=== PATIENT | male | born 1965 | race Caucasian/White ===

== ENCOUNTER 2018-03-12 06:21 | Outpatient (CLI) | payer BC ==
[~2018-03-12] VITALS: Ht 185.4 cm; Wt 110.7 kg
[2018-03-12] MEDS ORDERED: PRAV80TA2 PO (11:21)
[2018-03-12] MEDS ORDERED: MONT10TA24 PO (11:21)
[2018-03-12] MEDS ORDERED: CETI10TA17 PO (11:21)
== END 2018-03-12 11:26 | disposition home or self-care (01) ==
LOC: PREOP 06:21
PROVIDERS: ATTEND Surgery
DX: Z01.818 Encounter for other preprocedural examination (principal)

== ENCOUNTER 2018-03-19 08:55 | Day surgery (SDC) | payer BC ==
[~2018-03-19] VITALS: Ht 185.4 cm; Wt 110.7 kg
[~2018-03-19 08:55] MED LIST: CETI10TA17 PO; MONT10TA24 PO; PRAV80TA2 PO
--- OUTSIDE RECORDS SUMMARY | 2018-03-19 08:59 | XMS REPORT ---
Author Author Nery Petersen [facility] Address [address] [place] [address] Care Team Providers Care Drafter Topographical Name Role Phone Nery Petersen Unavailable PROBLEMS Unknown Problems ALLERGIES No Information SOCIAL HISTORY Never Assessed PLAN OF CARE VITAL SIGNS MEDICATIONS Medication Instructions Dosage Frequency Start Date End Date Duration Status Amoxicillin 500 MG Orally every 12 hrs 1 capsule 12h 10 days Active RESULTS No Results PROCEDURES No Known procedures IMMUNIZATIONS No Known Immunizations MEDICAL (GENERAL) HISTORY Type Description Date Medical History Seasonal allergies Medical History Hyperlipidemia Medical History Hx of heart palpitations years ago - wore a holter monitor and no problems were found Surgical History Rotator Cuff surgery - Dr. Sandi Fong 1988
--- OUTSIDE RECORDS SUMMARY | 2018-03-19 09:00 | XMS REPORT ---
Author Author Nery Petersen [facility] Address [address] [place] [address] Care Team Providers Care Hand Meat Salter Name Role Phone Nery Petersen Unavailable PROBLEMS Unknown Problems ALLERGIES No Information SOCIAL HISTORY Never Assessed PLAN OF CARE VITAL SIGNS MEDICATIONS Unknown Medications RESULTS No Results PROCEDURES No Known procedures IMMUNIZATIONS No Known Immunizations MEDICAL (GENERAL) HISTORY Type Description Date Medical History Seasonal allergies Medical History Hyperlipidemia Medical History Hx of heart palpitations years ago - wore a holter monitor and no problems were found Surgical History Rotator Cuff surgery - Dr. Sandi Fong 1988
--- OUTSIDE RECORDS SUMMARY | 2018-03-19 09:00 | XMS REPORT ---
Author Author Nery Petersen [facility] Address [address] [place] [address] Care Team Providers Care Header Dock Name Role Phone Nery Petersen Unavailable PROBLEMS Unknown Problems ALLERGIES No Information SOCIAL HISTORY Never Assessed PLAN OF CARE VITAL SIGNS MEDICATIONS Medication Instructions Dosage Frequency Start Date End Date Duration Status PredniSONE 20 MG Orally Once a day 3 tablets x 2 days, 2 tablets x 2 days, 1 tablet x 2 days (take with food or milk) 24h 6 days Active RESULTS No Results PROCEDURES No Known procedures IMMUNIZATIONS No Known Immunizations MEDICAL (GENERAL) HISTORY Type Description Date Medical History Seasonal allergies Medical History Hyperlipidemia Medical History Hx of heart palpitations years ago - wore a holter monitor and no problems were found Surgical History Rotator Cuff surgery - Dr. Sandi Fong 1988
--- OUTSIDE RECORDS SUMMARY | 2018-03-19 09:00 | XMS REPORT ---
Author Author Valentine Haynes [facility] Address [address] [place] [address] Care Team Providers Care Message And Delivery Service Pricer Name Role Phone Haynes, Valentine Unavailable PROBLEMS Unknown Problems ALLERGIES No Known Allergies ENCOUNTERS Encounter Location Date Diagnosis [facility] [address] [place] [id number] Jul, Bronchitis J40 and Cough R05 [facility] [address] [place] [id number] Apr, Bronchitis J40 [facility] [address] [place] [id number] Apr, [facility] [address] [place] [id number] Apr, [facility] [address] [place] [id number] Apr, [facility] [address] [place] [id number] Mar, Pharyngitis, unspecified etiology J02.9 ; Fever, unspecified fever cause R50.9 and Immunization not carried out because of patient refusal Z28.21 IMMUNIZATIONS No Known Immunizations SOCIAL HISTORY Never Assessed REASON FOR VISIT swollen glands; cough; sore throat PLAN OF CARE Activity Details Follow Up prn Reason: Pending Test Chest X-Ray: PA and Lateral VITAL SIGNS Temperature 97.3 degrees Fahrenheit 2017-08-08 Heart Rate 81 /min 2017-08-08 Height 6 ft 1 in in 2017-08-08 Weight 236 lbs 2017-08-08 BMI 31.13 kg/m2 2017-08-08 Oximetry 98 % 2017-08-08 Blood pressure systolic 128 mm Hg 2017-08-08 Blood pressure diastolic 86 mm Hg 2017-08-08 MEDICATIONS Medication Instructions Dosage Frequency Start Date End Date Duration Status Naproxen 500 MG Orally Twice a day 1 tablet 12h Active Flonase 50 MCG/ACT Nasally Once a day 1 spray in each nostril 24h Active ZyrTEC Active Augmentin 875-125 MG Orally every 12 hrs 1 tablet 12h Jul,Jul 10 day(s) Active Pravastatin Sodium 80 MG Orally Once a day 1 tablet 24h Active Singulair 10 MG Orally Once a day 1 tablet in the evening 24h Active Zithromax Z-Marvin 250 MG Orally Once a day 2 tablets on the first day, then 1 tablet daily for 4 days 24h 5 day(s) Active RESULTS No Results PROCEDURES Procedure Date Ordered Result Body Site X-RAY EXAM CHEST 2 VIEWS August 08, 2017 INSTRUCTIONS MEDICATIONS ADMINISTERED No Known Medications MEDICAL (GENERAL) HISTORY Type Description Date Medical History Seasonal allergies Medical History Hyperlipidemia Medical History Hx of heart palpitations years ago - wore a holter monitor and no problems were found Surgical History Rotator Cuff surgery - Dr. Sandi Fong 1989
--- OUTSIDE RECORDS SUMMARY | 2018-03-19 09:00 | XMS REPORT ---
Author Author Dada Dunn [facility] Address [address] [place] [address] Care Team Providers Care Activities Aide Name Role Phone Dada Dunn Unavailable PROBLEMS Unknown Problems ALLERGIES No Known Allergies SOCIAL HISTORY Never Assessed PLAN OF CARE Activity Details Follow Up prn Reason: VITAL SIGNS Temperature 98.0 degrees Fahrenheit 2017-05-13 Heart Rate 63 /min 2017-05-13 Height 6 ft 1 in in 2017-05-13 Weight 239.0 lbs 2017-05-13 BMI 31.53 kg/m2 2017-05-13 Oximetry 98 % 2017-05-13 Blood pressure systolic 132 mm Hg 2017-05-13 Blood pressure diastolic 80 mm Hg 2017-05-13 MEDICATIONS Medication Instructions Dosage Frequency Start Date End Date Duration Status Naproxen 500 MG Orally Twice a day 1 tablet 12h Active Singulair 10 MG Orally Once a day 1 tablet in the evening 24h Active Flonase 50 MCG/ACT Nasally Once a day 1 spray in each nostril 24h Active Pravastatin Sodium 80 MG Orally Once a day 1 tablet 24h Active ZyrTEC Active Zithromax Z-Marvin 250 MG Orally Once a day 2 tablets on the first day, then 1 tablet daily for 4 days 24h 5 day(s) Active RESULTS No Results PROCEDURES No Known procedures IMMUNIZATIONS No Known Immunizations MEDICAL (GENERAL) HISTORY Type Description Date Medical History Seasonal allergies Medical History Hyperlipidemia Medical History Hx of heart palpitations years ago - wore a holter monitor and no problems were found Surgical History Rotator Cuff surgery - Dr. Sandi Fong 1988
[2018-03-19] MEDS ORDERED: NS IV 500 ML 500 ML ONE (09:06)
[2018-03-19] MEDS ORDERED: NS IV 500 ML 500 ML IV PRN (09:25)
[2018-03-19 09:28] VITALS: BP 118/84
[2018-03-19] MEDS ORDERED: LIDOCAINE JELLY 2% 6 ML SYRINGE MM PRN (09:30)
[2018-03-19] MEDS ORDERED: MIDAZOLAM 2 MG/2 ML (VERSED) VIAL IVP ONE (09:30)
[2018-03-19] MEDS ORDERED: fentaNYL INJECTION 100 MCG/2 ML AMP IVP ONE (09:30)
[2018-03-19] MEDS ORDERED: MIDAZOLAM 2 MG/2 ML (VERSED) VIAL ONE ×4 (10:23→10:44)
[2018-03-19] MEDS ORDERED: fentaNYL INJECTION 100 MCG/2 ML AMP ONE (10:23)
[2018-03-19] MEDS ORDERED: LIDOCAINE JELLY 2% 6 ML SYRINGE ONE (10:23)
--- NOTE | 2018-03-19 11:05 | Conscious Sedation/ASA ---
Conscious Sedation Pre-Proced Time 09:30 ASA Score 2 For ASA 3 and 4: Consider anesthesia and medical clearance. Also, for patients with a history of failed moderate sedation consider anesthesia. Airway Lungs Heart ASA score ASA 1: a normal healthy patient ASA 2: a patient with a mild systemic disease (mid diabetes, controlled hypertension, obesity ASA 3: a patient with a severe systemic disease that limits activity (angina , COPD, prior Myocardial infarction) ASA 4: a patient with an incapacitating disease that is a constant threat to life (CHF, renal failure) ASA 5: a moribund patient not expected to survive 24 hrs. (ruptured aneurysm) ASA 6: a declared brain patient whose organs are being harvested. For emergent operations, add the letter E after the classification Mallampati Classification Grade 2 Sedation Plan Analgesia, Amnesia, Plan communicated to team members, Discussed options with patient/fam, Discussed risks with patient/fam The patient is an appropriate candidate to undergo the planned procedure, sedation, and anesthesia. The patient immediately re-assessed prior to indication. JENNIFER SMITH MD Mar 19, 2018 11:05 am
--- NOTE | 2018-03-19 11:07 | Progress Note-Pre Operative ---
Pre-Operative Progress Note H&P Reviewed The H&P was reviewed, patient examined and no changes noted. Date Seen by Provider: Mar 19, 2018 Time Seen by Provider: : Date H&P Reviewed: Mar 19, 2018 Time H&P Reviewed: :30 Pre-Operative Diagnosis: screening colonoscopy JENNIFER SMITH MD Mar 19, 2018 11:07 am
--- NOTE | 2018-03-19 11:11 | Progress Note-Post Operative ---
Post-Operative Progess Note Surgeon (s)/Office Support Associate (s) Surgeon JENNIFER SMITH MD Office Support Associate: none Pre-Operative Diagnosis screening colonoscopy Post-Operative Diagnosis chronic stage 2-3 ext hemorrhoid, mild sigmoid diverticulosis, HP polyp sigmoid colon. Procedure & Operative Findings Date of Procedure 03/19/18 Procedure Performed/Findings Colonoscopy with bx. Anesthesia Type CS Estimated Blood Loss Estimated blood loss (mL): minimal Specimens/Packing Specimens Removed sigmoid colon JENNIFER SMITH MD Mar 19, 2018 11:11 am
--- NOTE | 2018-03-19 11:14 | Discharge Inst-Surgical ---
D/C Lap Instructions-SARAH Follow Up 10 years or PRN Activity as tolerated High Fiber Diet 25g or more per day Avoid Alcohol, Caffeine, Spicy Kaser and Acid foods. Drink 64 fluid oz or more of fluids per day. Symptoms to Report: Fever over 101 degree F, Nausea/Vomiting If any problems/questions: Contact your physician or go to Emergency Room JENNIFER SMITH MD Mar 19, 2018 11:14 am
[2018-03-19 11:15] VITALS: BP 94/53
[2018-03-19] MEDS ORDERED: morphine INJ 10 MG/ML 1ML (SYR OR VIAL) IV PRN (11:15)
[2018-03-19] MEDS ORDERED: ONDANSETRON 4 MG/2 ML (SDV) Z0FRAN IV PRN (11:15)
[2018-03-19] MEDS ORDERED: HYDROcodone/APAP 5 MG/325 MG (LORTAB) TAB PO PRN (11:15)
[2018-03-19] MEDS ORDERED: ACETAMINOPHEN 325 MG TABLET PO PRN (11:15)
[2018-03-19 11:40] VITALS: BP 122/80
[2018-03-19 11:43] VITALS: BP 122/80
--- NOTE | 2018-03-19 15:17 | OPERATIVE REPORT ---
DATE OF SERVICE: 03/19/2018 ATTENDING PRIMARY CARE PHYSICIAN: Dr. Bateman. PREOPERATIVE DIAGNOSIS: Screening colonoscopy. POSTOPERATIVE DIAGNOSES: Chronic between stage II and III external hemorrhoidal cushion, mild sigmoid diverticulosis, small hyperplastic polyp of the sigmoid colon. PROCEDURE: Colonoscopy with biopsy. SURGEON: Jennifer Smith MD ANESTHESIA: Conscious sedation. ESTIMATED BLOOD LOSS: Minimal. FINDINGS: There was a left lateral chronic external hemorrhoidal cushion between stage II and III. No active inflammation, irritation or bleeding. Prostate gland was palpable and appeared normal. Mild sigmoid diverticulosis, small hyperplastic polyp of the sigmoid colon. The remainder of the colon was normal. DISPOSITION: The patient tolerated the procedure well. INDICATIONS: The patient is a 52-year-old male in need of a screening colonoscopy. He reports that he has had pruritus as well as mild burning and has noticed small amounts of blood with the stools. He does report having hemorrhoids on an intermittent basis in the past. He also states that he has been doing a lot of heavy lifting in the past year due to moving locations in doing the majority of lifting on his own. He has not had a colonoscopy up to this point in his life. He does not report any family history of colon cancer. DESCRIPTION OF PROCEDURE: The patient was brought to the endoscopy suite, laid in left lateral decubitus position. After adequate IV pain and sedative medications and conscious sedation anesthesia, a digital rectal examination was performed. There was a chronic external hemorrhoidal cushion between stage II and III in the left lateral position. There was no active inflammation, irritation or bleeding. There was also no thrombosis. Normal sphincter tone was felt. Prostate gland was palpable and appeared normal. The endoscope was then intubated to the anus and rectum gently insufflated. The endoscope was then advanced through the valves of Kohli in the rectum with no polyps or any neoplasms identified. The endoscope was then advanced through the sigmoid colon where mild sigmoid diverticulosis identified. There were no mucosal inflammatory changes to indicate any active diverticulitis. There is a small hyperplastic polyp identified the sigmoid colon. This was approximately 2 mm in size. This was biopsied and destroyed using forceps and electrocautery with visualization of good hemostasis. The endoscope was then advanced to the remainder of the descending, transverse and ascending colon to the cecum. These segments were normal. The endoscope was then slowly withdrawn while taking a second look and suctioning of residual air with no additional findings. The patient tolerated the procedure well. We will recommend a high fiber diet with at least 30 grams of fiber per day as well as copious amounts of water to promote soft stools on a daily basis that required no straining upon defecation. The polyp appears to be benign hyperplastic polyp and this is confirmed by pathology, he may wait 10 years for his next colonoscopy. Job ID: [id number] DocumentID: [id number] Dictated Date: 03/19/2018 11:02:07 Cell Operation Supervisor Date: 03/19/2018 15:16:56 Dictated By: JENNIFER SMITH MD [facility]
== END 2018-03-19 11:45 | disposition home or self-care (01) ==
LOC: ENDO 08:55
PROVIDERS: ATTEND Surgery
DX: Z12.11 Encounter for screening for malignant neoplasm of colon (principal); K63.5 Polyp of colon; K57.30 Diverticulosis of large intestine without perforation or abscess without bleeding; K64.2 Third degree hemorrhoids; E78.00 Pure hypercholesterolemia, unspecified; Z79.899 Other long term (current) drug therapy
CPT/HCPCS: 88305